=== PATIENT | male | born 1970 | race Two or more races ===

== ENCOUNTER → 2024-12-08 | Outpatient (CLI) | payer OTHER ==
[~2024-12-08] VITALS: Ht 162.6 cm; Wt 77.1 kg
--- NOTE | 2024-12-08 14:45 | DVHCARD ---
Cardiology Stress Test [place] Treadmill Stress Test [place] Referring MD: MD Giovany Protocol: Miguel Ángel (with cardiolite) Reason for referral: Chest Pain Target heart Rate:@85%: 139 Percent MPHR: 164 METS: 10.1 Resting Heart rate: 64 Resting Blood Pressure: 152/89 Exercise Heart Rate: 123 Exercise Blood Pressure: 171/73 Baseline EKG: Normal sinus rhythm Stress EKG: Sinus tachycardia Functional Capacity: Good Normal Heart Rate Response: Adequate Blood Pressure Response: Hypertensive Clinical response: Non-ischemic Arrhythmia?: No Cardiolite Injected?: Yes ST-T Changes: Non/Minimal Probability of Inducible Ische: Perfusion result pending Date of Service: Dec 08, 2024 Billing Provider: NADIRA VERA Cardiology Common Codes: PROCEDURE ONLY Treadmill W/Cardiolite Nuclear: [id number], INTERP, RPT NADIRA VERA Dec 08, 2024 14:45
--- NOTE | 2024-12-08 21:57 | DVHSR ---
APPROVED REPORT Exam: Nuclear Stress Test Indication: Chest pain BMI: 0 Medical History Medical History: Hyperlipidemia Allergies: No known drug allergies Stress Test Details Stress Test: Exercise stress testing was performed using a Miguel Ángel protocol. HR Resting HR: 64 bpmMax Heart Rate (APMHR): 164.042428 bpm Max HR Achieved: 123 bpmTarget HR (85% APMHR): 139.501049 bpm % of APMHR: 75.00 Recovery HR: 75 bpm BP Resting BP: 152/89 mmHg Recovery BP: 146/78 mmHg ECG Resting ECG: Sinus Rhythm Clinical Reason for Termination: Completed protocol Exercise duration: 9 min 5 sec Nurse Comments Recieved ambulatory, A/Ox4 on RA, connected to windows architect, VS stable. reviewed POC, pt verbalized understanding. [employer] CONTA[employer]ANT OPERATOR here to monitor exam. Treadmill test performed per protocol. Pt stable, tolerated well, VS returned to baseline. Pt to follow up with manufacturing assistant for results. Stress ECG Conclusion lvef62% no severe stress induced ischemia noted inferior wall artifact noted mild NM EXAM: Myocardial Perfusion REST/STRESS Imaging Protocol: Rest Tc-99m/Stress Tc-99m 1 day Resting Data Rest SPECT myocardial perfusion imaging was performed in supine position 60 minutes following the int ravenous injection of 14 mCi of Tc-99m Sestamibi. Time of rest injection: 1053 Time of rest imagin Administration Route: IV Administration Site: Right Arm Pharmacologic Stress Pharmacologic stress test was performed by injecting Regadenoson 0.4 mg IV push followed by the intra venous injection of 32 mCi of Tc-99m Sestamibi. Time of stress injection: 1227 Time of stress imagin Administration Route: IV Administration Site: Right Arm Gated Stress SPECT was performed 60 minutes after stress injection. The images were gated to evaluate regional wall motion and calculate left ventricular ejection fracti on. Stress only was performed in the Supine position. Nuclear Conclusion Nuclear Findings: negative for ischemia lvef62% no severe stress induced ischemia noted inferior wall artifact noted mild
== END | disposition home or self-care (01) ==
LOC: XYW 10:32
PROVIDERS: ATTEND Internal Medicine
DX: R00.0 Tachycardia, unspecified (principal); R07.9 Chest pain, unspecified; E78.5 Hyperlipidemia, unspecified
CPT/HCPCS: 78452; 93017; A9500